=== PATIENT | male | born 1980 | race Caucasian/White ===

== ENCOUNTER 2020-10-15 20:15 | Emergency (ER) | payer MEDICARE ==
[~2020-10-15 20:15] MED LIST: BRILINTA 90 MG90 MG PO; ECOTRIN81 MG PO; ELAVIL 10 MG TA10 MG PO; FELDENE10 MG PO; GABAPENTIN400 MG PO; HYDROCODON-ACE1 EAC6 PO; IBU800 MG PO; IMDUR ER TAB 3030 MG PO; KEFLEX CAP 500500 MG PO; LIPITOR TAB 2020 MG PO; LOPRESSOR 25 MG25 MG PO; NITROSTAT0.4 MG SL; PERCOCET 5-3251 EACH PO; VENTOLIN HFA 66.7 GM INH; VITAMIN C500 M4 PO; VITAMIN D PO; ZESTRIL10 MG PO
[2020-10-15 21:28] LABS: HEMOGLOBIN 12.8 gm/dl (14.0-17.5)
[2020-10-15] MEDS ORDERED: LODINE CAP 300300 MG PO (22:13)
[2020-10-15] MEDS ORDERED: BACTROBAN OINT22 GM TOP (22:16)
== END 2020-10-15 23:10 | disposition home or self-care (01) ==
LOC: ER1 20:15
PROVIDERS: Physician Assistant
DX: S51.811A Laceration without foreign body of right forearm, initial encounter (principal); I25.2 Old myocardial infarction; E78.5 Hyperlipidemia, unspecified; I10 Essential (primary) hypertension; F17.210 Nicotine dependence, cigarettes, uncomplicated; Z90.89 Acquired absence of other organs; W64.XXXA Exposure to other animate mechanical forces, initial encounter
CPT/HCPCS: 73090; 85014; 85018; 85610; 99283

== ENCOUNTER → 2021-06-28 | Outpatient (CLI) | payer MEDICARE ==
[~2021-06-28] MED LIST changes: +BACTROBAN OINT22 GM TOP; +LODINE CAP 300300 MG PO
== END ==
LOC: KOH-I 09:00
DX: M51.36 Other intervertebral disc degeneration, lumbar region (principal)
CPT/HCPCS: 72148